=== PATIENT | female | born 1995 | race Caucasian/White ===

== ENCOUNTER → 2017-01-16 | Outpatient (CLI) | payer BC, OTHER ==
--- OUTSIDE RECORDS SUMMARY | 2017-01-16 12:52 | XMS REPORT ---
Author FRANCISCO Cortes Organization [employer] Address Unknown Phone Unavailable Care Team Providers Care Clinical Genetics Laboratory Chief Name Role Phone FRANCISCO DERAS CP Unavailable Allergies, Adverse Reactions, Alerts Substance Reaction Event Type Bactrim Info Not Available Drug Allergy Problems Problem Type Condition Code Onset Dates Condition Status Problem Headache R51 Active Assessment Physical exam Z00.00 Active Problem Physical exam Z00.00 Active Assessment Headache R51 Active Medications Medication Code System Code Instructions Start Date End Date Status Dosage Excedrin Migraine [facility] [address]-04 250-250-65 MG Orally every 6 hrs AugOct 05, 2015 2 tablets as needed Depo-Provera [facility] [address]-38 150 MG/ML Intramuscular 1 ml Procedures Procedure Coding System Code Date COMPREHEN METABOLIC PANEL CPT-4 75563 Sep 05, 2015 ASSAY THYROID STIM HORMONE CPT-4 71677 Sep 05, 2015 COMPLETE CBC W/AUTO DIFF WBC CPT-4 97478 Sep 05, 2015 Preventive Care Est Pt. Age 18-39 CPT-4 85177 Sep 05, 2015 LIPID PANEL CPT-4 79650 Sep 05, 2015 Vital Signs Date/Time: Sep 05, 2015 Temperature 98.5 F BMIPercentile 86.82 % Weight 153.3 lbs Height 63.7 in BMI 26.56 Index Blood Pressure Diastolic 80 mmHg Blood Pressure Systolic 124 mmHg Cardiac Monitoring Heart Rate 76 bpm Wt Percentile 84.6 % Ht Percentile 41.17 % Results No Known Results Summary Purpose [employer] Submission
--- NOTE | 2017-01-16 13:27 | Diagnostic Imaging Report ---
PROCEDURE: CT head without contrast. TECHNIQUE: Multiple contiguous axial images were obtained through the brain without the use of intravenous contrast. INDICATION: Chronic headache which has intensified over last two months. CT HEAD: Multiple contiguous axial CT images of the head were obtained. FINDINGS: Ventricles and sulci are within normal limits for size. There is no intracranial hemorrhage identified. There is no abnormal mass effect or shift of midline structures. IMPRESSION: Unremarkable CT of the head. Dictated by: Dictated on workstation # [id number]
== END ==
LOC: RAD 12:48
PROVIDERS: ATTEND Family Medicine
DX: R51 Headache (principal)
CPT/HCPCS: 70450

== ENCOUNTER 2019-09-16 05:29 | Outpatient (CLI) | payer BC ==
[~2019-09-16] VITALS: Ht 157.5 cm; Wt 71.8 kg
[2019-09-16] MEDS ORDERED: PROP20TA5 PO (09:30)
== END 2019-09-16 09:36 | disposition home or self-care (01) ==
LOC: PREOP 05:29
PROVIDERS: ATTEND Obstetrics & Gynecology
DX: Z01.818 Encounter for other preprocedural examination (principal)

== ENCOUNTER 2019-09-20 11:34 | Day surgery (SDC) | payer BC ==
[~2019-09-20] VITALS: Ht 157.5 cm; Wt 71.8 kg
[2019-09-20] VITALS (11 sets, daily range): BP systolic 99–116; BP diastolic 67–83
--- NOTE | 2019-09-20 08:08 | Progress Note-Pre Operative ---
Pre-Operative Progress Note H&P Reviewed The H&P was reviewed, patient examined and no changes noted. Date Seen by Provider: Sep 20, 2019 Time Seen by Provider: 12:30 Date H&P Reviewed: Sep 20, 2019 Time H&P Reviewed: 12:31 Pre-Operative Diagnosis: DUB / intrauterine mass YAN CARDOSO MD Sep 20, 2019 08:08 POS
--- NOTE | 2019-09-20 08:08 | Discharge Instructions ---
Discharge Instructions Discharge Medications New, Converted or Re-Newed RX: RX on Chart Patient Instructions Return to The Hospital For: as directed Activity & Diet Discharge Diet: No Restrictions Activity as Tolerated: No Orders-Post D/C & Referrals Follow Up Appt: Call to make follow up appt. for patient in 2 weeks. Activity: as tolerated. Please call in RX to patient pharmacy. Diet: As tolerated-Clear Liquids only if nauseated. shower or tub bathe as desired. No driving for 24 hours, no alcoholic beverages for 24 hours, and nothing per vagina (no tampons, douching, or intercourse) for 2 weeks. Patient to return to the clinic as soon as possible for: Temperature greater than 101F, Severe Pain, Foul discharge from incision or vagina, Excessive Bleeding (more than a period). YAN CARDOSO MD Sep 20, 2019 08:08
--- NOTE | 2019-09-20 08:09 | Progress Note-Post Operative ---
Post-Operative Progess Note Surgeon (s)/Research Subject (s) Surgeon YAN CARDOSO MD Research Subject: none Pre-Operative Diagnosis DUB / intrauterine mass Post-Operative Diagnosis same with path pending Procedure & Operative Findings Date of Procedure 09/20/19 Procedure Performed/Findings Hysteroscopy with directed biopsy and D&C Anesthesia Type GETA Estimated Blood Loss Estimated blood loss (mL): min Specimens/Packing Specimens Removed Two directed biopsies and endometrial curettings YAN CARDOSO MD Sep 20, 2019 08:09 POS
[~2019-09-20 11:34] MED LIST: D5 LR IV SOLUTION 1,000 ML IV SCH; DEXAMETHASONE 10 MG/ML (DECADRON) 1 ML VIAL ONE; IBUP-1780 PO; KETOROLAC 30 MG/ML VIAL IVP ONE; MEPERIDINE (DEMEROL) INJ 100 MG/ML IM ONE; MIDAZOLAM 2 MG/2 ML (VERSED) VIAL ONE; ONDANSETRON 4 MG/2 ML (SDV) Z0FRAN IVP PRN; ONDANSETRON 4 MG/2 ML (SDV) Z0FRAN ONE; PROMETHAZINE INJ 25 MG/ML (PHENERGAN) AMP IM ONE; PROP20TA5 PO; SEVOFLURANE (ULTANE) 15 ML INHAL SOLN ONE; fentaNYL INJECTION 100 MCG/2 ML AMP ONE; oxyCODONE/APAP 5/325MG (PERCOCET 5) TABLET PO PRN; proPOfol 200 MG/20 ML (DIPRIVAN) VIAL IV ONE
[2019-09-20] MEDS ORDERED: ceFAZolin INJECTION 1,000 MG in WATER (STERILE) FOR INJECTION 10 ML IV ONE (11:45)
[2019-09-20 12:24] LABS: BASOPHILS % (AUTO) 0 % (0-10); EOSINOPHILS # (AUTO) 0.1 10^3/uL (0.0-0.3); EOSINOPHILS % (AUTO) 1 % (0-10); HEMATOCRIT 35 % (35-52); HEMOGLOBIN 11.7 G/DL (11.5-16.0); LYMPHOCYTES # (AUTO) 2.3 X 10^3 (1.0-4.0); LYMPHOCYTES % (AUTO) 31 % (12-44); MEAN CORPUSCULAR HEMOGLOBIN 30 PG (25-34); MEAN CORPUSCULAR HGB CONC 33 G/DL (32-36); MEAN CORPUSCULAR VOLUME 89 FL (80-99); MEAN PLATELET VOLUME 11.2 FL (7.4-10.4); MONOCYTES # (AUTO) 0.7 X 10^3 (0.0-1.0); MONOCYTES % (AUTO) 9 % (0-12); NEUTROPHILS # (AUTO) 4.5 X 10^3 (1.8-7.8); NEUTROPHILS % (AUTO) 59 % (42-75); PLATELET COUNT 298 10^3/uL (130-400); RED CELL DISTRIBUTION WIDTH 13.5 % (10.0-14.5); WHITE BLOOD COUNT 7.6 10^3/uL (4.3-11.0)
[2019-09-20] MEDS: LACTATED RINGERS 1,000 ML IV PRN ×2 (12:26→13:33)
[2019-09-20] MEDS ORDERED: ESMOLOL 100 MG/10 ML (BREVIBLOC) VIAL ONE (12:47)
[2019-09-20] MEDS ORDERED: LIDOCAINE PF 2% 5 ML (XYLOCAINE) VIAL ONE (13:00)
[2019-09-20] MEDS ORDERED: ESTROGENS CONJ IV 25 MG/5 ML (PREMARIN) VIAL IVP NR (13:15)
[2019-09-20] MEDS ORDERED: WATER (STERILE) FOR INJ 10 ML BTL INJ NR (13:15)
[2019-09-20] MEDS ORDERED: KETOROLAC 30 MG/ML VIAL ONE (13:30)
[2019-09-20] MEDS ORDERED: ONDANSETRON 4 MG/2 ML (SDV) Z0FRAN IVP PRN (13:30)
[2019-09-20] MEDS ORDERED: HYDROmorphone 2 MG/ML VIAL (DILAUDID) IV ONE (13:30)
[2019-09-20] MEDS ORDERED: morphine INJ 10 MG/ML 1ML (SYR OR VIAL) IVP ONE (13:30)
--- NOTE | 2019-09-20 13:41 | Anesthesia-General Post-Op ---
General Patient Condition Mental Status/LOC: Same as Preop Cardiovascular: Satisfactory Nausea/Vomiting: Absent Respiratory: Satisfactory Pain: Controlled Complications: Absent Post Op Complications Complications None Follow Up Care/Instructions Patient Instructions None needed. Anesthesia/Patient Condition Patient Condition Patient is doing well, no complaints, stable vital signs, no apparent adverse anesthesia problems. DENISE MORRIS DO Sep 20, 2019 13:41 POS
--- NOTE | 2019-09-20 15:05 | NUR ---
IBUPROFEN SCRIPT CALLED TO [facility] PER INSTRUCTIONS FROM DR CARDOSO.
--- NOTE | 2019-09-20 15:15 | NUR ---
ALERT, DENIES COMPLAINTS. UP WITH ASSIST TO BR, GAIT STEADY, VOIDS WITHOUT PROBLEM. SCANT AMOUNT OF BLOODY DRAINAGE TO V-PAD. TAKING PO FLUIDS WELL AND STATES SHE IS READY FOR DISMISSAL.
--- NOTE | 2019-09-20 18:07 | OPERATIVE REPORT ---
DATE OF SERVICE: 09/20/2019 PREOPERATIVE DIAGNOSES: Dysfunctional uterine bleeding and intrauterine mass. POSTOPERATIVE DIAGNOSES: Dysfunctional uterine bleeding and intrauterine mass with pathology pending. OPERATIVE PROCEDURE: Hysteroscopy with directed biopsy and D and C. OPERATIVE DESCRIPTION: With the patient in supine position under satisfactory general anesthesia, she was repositioned in dorsal lithotomy position in the [place] stirrups and prepped and draped in the usual fashion for vaginal surgery. Urinary bladder was drained with straight catheter. Cervix was dilated with Nabor dilators and then a #9 Hegar dilator. Hysteroscope was introduced and endometrial cavity was examined. There was some punctate lesions in the left fundus of the uterus . This area was biopsied. There was an exophytic mass lesion and the right uterine sidewall that was biopsied as well. The endometrial cavity was then sharply curettaged in all 4 quadrants to good uterine cry with removal of an additional aliquot of tissue. The hysteroscope was reinserted. There was no remaining abnormal tissue and there was no significant bleeding. The hysteroscope was removed and IUD had been removed from the patient prior to initiating procedure and then it was replaced with plans for followup in clinic. Sponge and needle counts were correct on completion of the procedure. Estimated blood loss was minimal. The patient tolerated the procedure well. Job ID: [id number] DocumentID: [id number] Dictated Date: 09/20/2019 13:00:01 Monumental Stonemason Date: 09/20/2019 18:06:39 Dictated By: YAN CARDOSO MD
== END 2019-09-20 15:15 | disposition home or self-care (01) ==
LOC: SDC 11:34
PROVIDERS: ATTEND Obstetrics & Gynecology
DX: N93.8 Other specified abnormal uterine and vaginal bleeding (principal); N85.8 Other specified noninflammatory disorders of uterus; G43.909 Migraine, unspecified, not intractable, without status migrainosus; Z88.1 Allergy status to other antibiotic agents; Z88.2 Allergy status to sulfonamides; Z79.899 Other long term (current) drug therapy
CPT/HCPCS: 36415; 84703; 85025; 87081

== ENCOUNTER → 2020-03-01 | Outpatient (CLI) | payer BC ==
[~2020-03-01] MED LIST changes: -D5 LR IV SOLUTION 1,000 ML IV SCH; -DEXAMETHASONE 10 MG/ML (DECADRON) 1 ML VIAL ONE; -KETOROLAC 30 MG/ML VIAL IVP ONE; -MEPERIDINE (DEMEROL) INJ 100 MG/ML IM ONE; -MIDAZOLAM 2 MG/2 ML (VERSED) VIAL ONE; -ONDANSETRON 4 MG/2 ML (SDV) Z0FRAN IVP PRN; -ONDANSETRON 4 MG/2 ML (SDV) Z0FRAN ONE; -PROMETHAZINE INJ 25 MG/ML (PHENERGAN) AMP IM ONE; -SEVOFLURANE (ULTANE) 15 ML INHAL SOLN ONE; -fentaNYL INJECTION 100 MCG/2 ML AMP ONE; -oxyCODONE/APAP 5/325MG (PERCOCET 5) TABLET PO PRN; -proPOfol 200 MG/20 ML (DIPRIVAN) VIAL IV ONE
== END ==
LOC: LABNPT 13:20
PROVIDERS: ATTEND Family Medicine
DX: R05 Cough (principal); Z20.828 Contact with and (suspected) exposure to other viral communicable diseases
CPT/HCPCS: 87430; 87635; 87804

== ENCOUNTER → 2020-07-20 | Outpatient (CLI) | payer BC | LOC: CARD 14:22 | PROVIDERS: ATTEND Nurse Practitioner Family | DX: R00.2 Palpitations (principal) | CPT/HCPCS: 93005 ==

== ENCOUNTER → 2020-07-27 | Outpatient (CLI) | payer BC | LOC: CARD 08:30 | PROVIDERS: ATTEND Family Medicine | DX: R00.2 Palpitations (principal); Z20.828 Contact with and (suspected) exposure to other viral communicable diseases | CPT/HCPCS: 93225; 93226 ==

== ENCOUNTER → 2021-08-16 | Outpatient (CLI) | payer OTHER ==
--- NOTE | 2021-08-16 17:51 | Diagnostic Imaging Report ---
PATIENT HISTORY: COUGH, BLOOD TINGED SPUTUM. TECHNIQUE: Two views of the chest. COMPARISON: None FINDINGS: The lung volumes are normal. No focal consolidation is seen. No large pleural effusion or pneumothorax is seen. The cardiomediastinal silhouette is normal in size and contour. No acute osseous abnormality is seen. IMPRESSION: No acute pulmonary abnormality seen. Dictated by: Dictated on workstation # [id number]
== END ==
LOC: RAD 17:00
PROVIDERS: ATTEND Nurse Practitioner Family
DX: R05 Cough (principal); R04.2 Hemoptysis
CPT/HCPCS: 71046

== ENCOUNTER → 2021-08-23 | Outpatient (CLI) | payer OTHER | END | disposition home or self-care (01) | LOC: PREOP 14:15 | PROVIDERS: ATTEND Obstetrics & Gynecology | DX: Z01.818 Encounter for other preprocedural examination (principal) ==

== ENCOUNTER 2021-08-24 11:11 | Day surgery (SDC) | payer OTHER ==
[2021-08-24] VITALS (11 sets, daily range): BP systolic 92–107; BP diastolic 55–78
[~2021-08-24] VITALS: Ht 62 cm; Wt 71.8 kg
[2021-08-24] MEDS ORDERED: ceFAZolin INJECTION 1,000 MG in WATER (STERILE) FOR INJECTION 10 ML IV ONE (11:45)
[2021-08-24] MEDS: LACTATED RINGERS 1,000 ML IV PRN ×2 (12:02→13:21)
--- NOTE | 2021-08-24 12:46 | Progress Note-Pre Operative ---
Pre-Operative Progress Note H&P Reviewed The H&P was reviewed, patient examined and no changes noted. Date Seen by Provider: Aug 24, 2021 Time Seen by Provider: 12:46 Date H&P Reviewed: Aug 24, 2021 Time H&P Reviewed: 12:46 Pre-Operative Diagnosis: Missed AB at 10 weeks gestation YAN CARDOSO MD Aug 24, 2021 12:46
--- NOTE | 2021-08-24 12:47 | Progress Note-Post Operative ---
Post-Operative Progess Note Surgeon (s)/Manager Wound Care (s) Surgeon YAN CARDOSO MD Manager Wound Care: None Pre-Operative Diagnosis Missed AB at 10 weeks gestation Post-Operative Diagnosis Same with pathology Procedure & Operative Findings Date of Procedure 08/24/21 Procedure Performed/Findings D&C for first trimester missed AB Anesthesia Type GETA Estimated Blood Loss Estimated blood loss (mL): 300cc Specimens/Packing Specimens Removed Uterine contents/products of conception YAN CARDOSO MD Aug 24, 2021 12:47
--- NOTE | 2021-08-24 12:49 | Discharge Inst-Surgical ---
Discharge Inst-Surgical Depart Medication/Instructions New, Converted or Re-Newed RX: Other Consults/Follow Up Patient Instructions: As directed Orders & Referrals Follow Up Appt: Call to make follow up appt. for patient in 2 weeks. Activity: as tolerated. Diet: As tolerated- shower or tub bathe as desired. No driving for 24 hours, no alcoholic beverages for 24 hours, and nothing per vagina (no tampons, douching, or intercoarse) for 2 weeks. Patient to return to the clinic as soon as possible for: Temperature greater than 101F, Severe Pain, Foul discharge from incision or vagina, Excessive Bleeding (more than a period). Activity Activity as Tolerated: No Diet Discharge Diet: No Restrictions YAN CARDOSO MD Aug 24, 2021 12:49
[2021-08-24 12:51] LABS: BASOPHILS % (AUTO) 1 % (0-10); EOSINOPHILS # (AUTO) 0.1 10^3/uL (0.0-0.3); EOSINOPHILS % (AUTO) 1 % (0-10); HEMATOCRIT 37 % (35-52); HEMOGLOBIN 12.5 g/dL (11.5-16.0); LYMPHOCYTES # (AUTO) 1.9 10^3/uL (1.0-4.0); LYMPHOCYTES % (AUTO) 23 % (12-44); MEAN CORPUSCULAR HEMOGLOBIN 31 pg (25-34); MEAN CORPUSCULAR HGB CONC 34 g/dL (32-36); MEAN CORPUSCULAR VOLUME 90 fL (80-99); MEAN PLATELET VOLUME 10.8 fL (9.0-12.2); MONOCYTES # (AUTO) 0.6 10^3/uL (0.0-1.0); MONOCYTES % (AUTO) 7 % (0-12); NEUTROPHILS # (AUTO) 5.7 10^3/uL (1.8-7.8); NEUTROPHILS % (AUTO) 68 % (42-75); PLATELET COUNT 321 10^3/uL (130-400); WHITE BLOOD COUNT 8.4 10^3/uL (4.3-11.0)
[2021-08-24] MEDS ORDERED: MIDAZOLAM 2 MG/2 ML (VERSED) VIAL ONE (12:55)
[2021-08-24] MEDS ORDERED: fentaNYL INJ 100 MCG/2 ML AMP ONE (12:56)
[2021-08-24] MEDS ORDERED: D5 LR IV SOLUTION 1,000 ML IV SCH (13:00)
[2021-08-24] MEDS ORDERED: ONDANSETRON 4 MG/2 ML (SDV) Z0FRAN IVP PRN (13:00)
[2021-08-24] MEDS ORDERED: KETOROLAC 30 MG/ML VIAL IVP ONE (13:00)
[2021-08-24] MEDS ORDERED: fentaNYL INJ 100 MCG/2 ML AMP IVP PRN (13:00)
[2021-08-24] MEDS ORDERED: SEVOFLURANE (ULTANE) 15 ML INHAL SOLN ONE (13:18)
[2021-08-24] MEDS ORDERED: LIDOCAINE PF 2% 5 ML (XYLOCAINE) VIAL ONE (13:19)
[2021-08-24] MEDS ORDERED: proPOfol 200 MG/20 ML (DIPRIVAN) VIAL IV ONE (13:19)
[2021-08-24] MEDS ORDERED: ONDANSETRON 4 MG/2 ML (SDV) Z0FRAN ONE (13:19)
--- NOTE | 2021-08-24 14:46 | Anesthesia-General Post-Op ---
General Patient Condition Mental Status/LOC: Same as Preop Cardiovascular: Satisfactory Nausea/Vomiting: Absent Respiratory: Satisfactory Pain: Controlled Complications: Absent Post Op Complications Complications None Follow Up Care/Instructions Patient Instructions None needed. Anesthesia/Patient Condition Patient Condition Patient is doing well, no complaints, stable vital signs, no apparent adverse anesthesia problems. No complications reported per nursing. JAMES LUND CRNA Aug 24, 2021 14:46
--- NOTE | 2021-08-24 20:47 | OPERATIVE REPORT ---
DATE OF SERVICE: 08/24/2021 PREOPERATIVE DIAGNOSIS: A 10-week with demise/missed . POSTOPERATIVE DIAGNOSIS: A 10-week with demise/missed . OPERATIVE PROCEDURE: D and C for first trimester missed AB. OPERATIVE DESCRIPTION: With the patient in the supine position under satisfactory general anesthesia, she was repositioned in a dorsal lithotomy position in the [place] stirrups and prepped and draped in the usual fashion for vaginal surgery. The urinary bladder was drained with a straight catheter. A weighted speculum placed in the posterior fornix of vagina, cervix exposed and grasped anteriorly with a single tooth tenaculum. Uterus sounded to 14 cm with the uterine sound. The cervix was then serially dilated with Nabor dilators to a #20 Nabor and then a #9 curved suction curette was introduced into the uterine cavity and a large amount of trophoblastic and decidual appearing tissue as well as blood clot, amniotic fluid and debris was evacuated. The endometrial cavity was then sharply curettaged in all four quadrants to good uterine cry. A curved suction curette was reintroduced and all blood clot and debris was evacuated from the uterus. Sponge and needle counts were correct on completion of the procedure. Tenaculum was removed. There was a slight bleeding from one of the puncture sites. This was touched with silver nitrate to effect hemostasis. With hemostasis now assured and the procedure complete, the patient was uneventfully awakened from the general anesthesia and transferred to the recovery room with plans for discharge home. Blood loss was around 300 mL. Sponge and needle counts were correct. Job ID: [id number] DocumentID: [id number] Dictated Date: 08/24/2021 13:16:02 Technology Applications Consultant Date: 08/24/2021 20:47:24 Dictated By: YAN CARDOSO MD
== END 2021-08-24 15:30 | disposition home or self-care (01) ==
LOC: SDC 11:11
PROVIDERS: ATTEND Obstetrics & Gynecology
DX: O02.1 Missed abortion (principal); Z79.899 Other long term (current) drug therapy; Z79.2 Long term (current) use of antibiotics
CPT/HCPCS: 36415; 85025; 87081